=== PATIENT | female | born 1990 | race Caucasian/White ===

== ENCOUNTER 2018-04-23 14:42 | Inpatient (IN) | payer OTHER ==
[2018-04-23 16:32] VITALS: BMI 24.7
--- NOTE | 2018-04-23 20:01 | HP ---
CIWA Score - CIWA Score Nausea/Vomitin-Mild Nausea/No Vomiting Muscle Tremors: 4-Moderate,w/Arms Extend Anxiety: 4-Mod. Anxious/Guarded Agitation: 4-Moderately Restless Paroxysmal Sweats: 1-Minimal Palms Moist Orientation: 0-Oriented Tacttile Disturbances: 0-None Auditory Disturbances: 0-None Visual Disturbances: 0-None Headache: 2-Mild CIWA-Ar Total Score: 16 Admission ROS S - HPI Chief Complaint: Benzodiazepine withdrawal symptoms Allergies/Adverse Reactions: Allergies Allergy/AdvReac Type Severity Reaction Status Date / Time Sulfa (Sulfonamide Allergy Verified 04/23/18 20:04 Antibiotics) History of Present Illness: 28 years old female with 17 years history of benzodiazepine dependence is seeking admission to detox. Patient has been in previous detox at [facility] in [facility] and reports insignificant period of sobriety. She has medical history of asthma, gastritis, seizures, anemia, kidney stones, depression and anxiety. She denies suicide attempt and suicidal ideation at this time. Exam Limitations: No Limitations - Ebola screening Have you traveled outside of the country in the last 21 days: No Have you had contact with anyone from an Ebola affected area: No Have you been sick,other than usual withdrawal symptoms: No Do you have a fever: No - Review of Systems Constitutional: Chills, Loss of Appetite, Malaise, Changes in sleep EENT: reports: Sinus Pressure Respiratory: reports: SOB with Exertion Cardiac: reports: No Symptoms Reported GI: reports: Nausea, Poor Appetite, Poor Fluid Intake, Vomiting, Abdominal cramping : reports: No Symptoms Reported Musculoskeletal: reports: Back Pain, Muscle Pain Integumentary: reports: Dryness Neuro: reports: Headache, Tingling, Tremors Endocrine: reports: No Symptoms Reported Hematology: reports: No Symptoms Reported Psychiatric: reports: Anxious, Depressed Other Systems: Reviewed and Negative Patient History - Patient Medical History Hx Anemia: Yes (Not on medication) Hx Asthma: Yes (Albuterol) Hx Chronic Obstructive Pulmonary Disease (COPD): No Hx Cancer: No Hx Cardiac Disorders: No Hx Congestive Heart Failure: No Hx Hypertension: No Hx Hypercholesterolemia: No Hx Pacemaker: No HX Cerebrovascular Accident: No Hx Seizures: Yes (Not on medication) Hx Diabetes: No Hx Gastrointestinal Disorders: Yes (Gastritis) Hx Liver Disease: No Hx Genitourinary Disorders: No Hx Sexually Transmitted Disorders: No Hx Renal Disease (ESRD): No Hx Thyroid Disease: No Hx Human Immunodeficiency Virus (HIV): No (Negative 2018) Hx Hepatitis C: No Hx Depression: Yes (Not on medication) Hx Suicide Attempt: No (Denies suicidal ideation at this time) Hx Bipolar Disorder: Yes (Not on medication) Hx Schizophrenia: No Other Medical History: Anxiety - Not on medication - Patient Surgical History Hx Section: Yes ( 05/01/2014) - PPD History Previous Implant?: No Documented Results: Negative w/o proof PPD to be Administered?: Yes - Reproductive History Patient is a Female of Child Bearing Age (11 -55 yrs old): Yes Last Menstrual Period: 03/13/18 Patient : No - Smoking Cessation Smoking history: Current every day smoker Have you smoked in the past 12 months: Yes Aproximately how many cigarettes per day: 10 Hx Chewing Tobacco Use: No Initiated information on smoking cessation: Yes 'Breaking Loose' booklet given: 04/23/18 - Substance & Tx. History Hx Alcohol Use: No Hx Substance Use: Yes Substance Use Type: Cocaine, Marijuana, Prescribed Hx Substance Use Treatment: Yes ([facility]) - Substances Abused Marijuana/Hashish Route: Smoking Frequency: Daily Amount used: 10 PUFFS OF PRESCRIBED MEDICAL MARIJUANA Age of first use: 27 Date of Last Use: 04/22/18 Alprazolam (Xanax) Route: Oral Frequency: Daily Amount used: 1MG Age of first use: 12 Date of Last Use: 04/22/18 Benzodiazepine (Klonopin) Route: Oral Frequency: Daily Amount used: 6MG Age of first use: 12 Date of Last Use: 04/22/18 Family Disease History - Family Disease History Family History: Denies (Patient reports that she was adopted as child) Admission Physical Exam BHS - Vital Signs Vital Signs: Vital Signs - 24 hr 04/23/18 16:30 Temperature 97.7 F Pulse Rate 64 Respiratory 17 Rate Blood Pressure 110/70 - Physical General Appearance: Yes: Moderate Distress, Tremorous, Irritable, Anxious HEENTM: Yes: EOMI, Normal ENT Inspection, Normal Voice, NABIL Respiratory: Yes: Lungs Clear, Normal Breath Sounds, No Respiratory Distress Neck: Yes: Supple Breast: Yes: Breast Exam Deferred Cardiology: Yes: Regular Rhythm, Regular Rate Abdominal: Yes: Normal Bowel Sounds, Soft Genitourinary: Yes: Within Normal Limits Back: Yes: Normal Inspection Musculoskeletal: Yes: Back pain, Muscle Pain, Muscle weakness Extremities: Yes: Tremors Neurological: Yes: meat dresser II-XII NML intact, Alert, Normal Mood/Affect Integumentary: Yes: Warm Lymphatic: Yes: Within Normal Limits - Diagnostic (1) Depression Current Visit: Yes Status: Chronic Qualifiers: Depression Type: unspecified Qualified Code(s): F32.9 - Major depressive disorder, single episode, unspecified (2) Anxiety Current Visit: Yes Status: Chronic (3) Anemia Current Visit: Yes Status: Chronic Qualifiers: Anemia type: iron deficiency (4) Asthma Current Visit: Yes Status: Chronic Qualifiers: Asthma severity: mild Asthma persistence: unspecified Asthma complication type: uncomplicated Qualified Code(s): J45.909 - Unspecified asthma, uncomplicated (5) Gastritis Current Visit: Yes Status: Chronic Qualifiers: Chronicity: unspecified (6) Kidney stone Current Visit: Yes Status: Chronic (7) Sedative, hypnotic or anxiolytic dependence with withdrawal, uncomplicated Current Visit: Yes Status: Acute Cleared for Admission [facility] - Detox or Rehab [facility] Level of Care: Medically Managed Detox Regimen/Protocol: Valium [facility] Breath Alcohol Content Breath Alcohol Content: 0 Urine Pregancy Test - Result Urine Test Results: Negative- NO Line Present Urine Drug Screen - Results Drug Screen Negative: No Urine Drug Screen Results: THC-Marijuana, CATRACHITO-Cocaine, AMP-Amphetamines, BZO- Benzodiazepines
[2018-04-23] MEDS ORDERED: LOPERAMIDE HCL 2 MG CAPSULE PO PRN (20:35)
[2018-04-23] MEDS ORDERED: MAG HYDROX/AL HYDROX/SIMETH 30 ML UNIT-DOSE CUP PO PRN (20:35)
[2018-04-23] MEDS ORDERED: guaiFENesin/D-METHORPHAN HB 10 ML UNIT-DOSE CUPS PO PRN (20:35)
[2018-04-23] MEDS ORDERED: MAGNESIUM HYDROX 2400MG/30ML ORAL SUSPENSION 30 ML CUP PO PRN (20:35)
[2018-04-23] MEDS ORDERED: NICOTINE POLACRILEX 2 MG GUM BC PRN (20:35)
[2018-04-23] MEDS ORDERED: MAGNESIUM CITRATE 300 ML BOTTLE PO PRN (20:35)
[2018-04-23] MEDS ORDERED: ACETAMINOPHEN 325 MG TABLET (FP) PO PRN (20:35)
[2018-04-23] MEDS ORDERED: MENTHOL/PHENOL 1 EACH UD MM PRN (20:35)
[2018-04-23] MEDS ORDERED: P-EPHED 60MG/TRIPROLIDI 2.5MG TABLET PO PRN (20:35)
[2018-04-23] MEDS ORDERED: IBUPROFEN 400 MG TABLET (FP) PO PRN (20:35)
[2018-04-23] MEDS ORDERED: diazePAM 5 MG TABLET PO ONE (22:00)
[2018-04-23] MEDS: THIAMINE HCL 100 MG TABLET (FP) PO SCH (23:14)
[2018-04-23] MEDS: diazePAM 5 MG TABLET PO SCH (23:15)
[2018-04-23] MEDS: MELATONIN 5 MG TABLETS PO PRN (23:23)
[2018-04-23] MEDS: GABAPENTIN 300 MG CAPSULE (FP) PO SCH (23:26)
[2018-04-24] MEDS: diazePAM 5 MG TABLET PO SCH ×3 (06:55→22:13)
[2018-04-24] MEDS: GABAPENTIN 300 MG CAPSULE (FP) PO SCH ×3 (06:55→22:13)
[2018-04-24] MEDS ORDERED: NICOTINE 14 MG/24 HOURS TOPICAL PATCH TD SCH (10:00)
[2018-04-24 10:24] LABS: HEMATOCRIT 38.2 % (32.4-45.2); HEMOGLOBIN 12.5 GM/dL (10.7-15.3); MCHC 32.8 g/dl (32.0-36.0); MEAN CELL VOLUME 88.4 fl (80-96); MEAN PLT VOLUME 10.1 fl (7.5-11.1); PLATELET COUNT 229 K/MM3 (134-434); RBC 4.32 M/mm3 (3.60-5.2); RDW 15.2 % (11.6-15.6); WHITE BLOOD COUNT 7.1 K/mm3 (4.0-10.0)
[2018-04-24] MEDS: diazePAM 5 MG TABLET PO PRN ×2 (10:31→17:20)
[2018-04-24] MEDS: PRENATAL VITAMINS W/ FOLIC ACID TABLET (FP) PO SCH (10:31)
[2018-04-24 10:45] LABS: ALBUMIN 3.7 g/dl (3.4-5.0); ALK PHOS 107 U/L (45-117); ANION GAP 9 MMOL/L (8-16); BILIRUBIN,TOTAL 0.3 mg/dL (0.2-1); BLOOD UREA NITROGEN 15 mg/dL (7-18); CALCIUM 8.5 mg/dL (8.5-10.1); CHLORIDE 107 mmol/L (98-107); CO2 27 mmol/L (21-32); CREATININE 0.8 mg/dL (0.55-1.3); GLUCOSE,RANDOM 84 mg/dL (74-106); POTASSIUM 3.9 mmol/L (3.5-5.1); SGOT/AST 3 U/L (15-37); SGPT/ALT 16 U/L (13-61); SODIUM 143 mmol/L (136-145); TOT PROT 6.4 g/dl (6.4-8.2)
[2018-04-24 13:12] LABS: URINE APPEARANCE TURBID; URINE BILIRUBIN NEGATIVE (<2.0 mg/dL); URINE COLOR AMBER; URINE GLUCOSE (UA) NEGATIVE (NEGATIVE); URINE KETONE TRACE (NEGATIVE); URINE LEUK ESTERASE NEGATIVE (NEGATIVE); URINE NITRITE NEGATIVE (NEGATIVE); URINE PROTEIN 1+ (NEGATIVE); URINE UROBILINOGEN NEGATIVE mg/dL (0.2-1.0)
[2018-04-24 13:17] LABS: URINE MUCUS FEW; YEAST MANY
--- NOTE | 2018-04-24 14:46 | EKG ---
Test Reason : Blood Pressure : / mmHG Vent. Rate : 066 BPM Atrial Rate : 067 BPM P-R Int : 118 ms QRS Dur : 090 ms QT Int : 386 ms P-R-T Axes : 056 077 072 degrees QTc Int : 404 ms NORMAL SINUS RHYTHM WITH SINUS ARRHYTHMIA NONSPECIFIC T WAVE ABNORMALITY ABNORMAL ECG NO PREVIOUS ECGS AVAILABLE Confirmed by MD Andersen Edward ([id number]) on 04/24/2018 2:45:45 PM Referred By: Confirmed By:Kody Andersen MD
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
--- NOTE | 2018-04-24 15:18 | PN ---
[facility] CIWA - CIWA Score Nausea/Vomitin-Mild Nausea/No Vomiting Muscle Tremors: 4-Moderate,w/Arms Extend Anxiety: 3 Agitation: 4-Moderately Restless Paroxysmal Sweats: No Perspiration Orientation: 0-Oriented Tacttile Disturbances: 0-None Auditory Disturbances: 0-None Visual Disturbances: 0-None Headache: 0-None Present CIWA-Ar Total Score: 12 BHS Progress Note (SOAP) Subjective: C/o shakes and hills. States feels very anxious.Expressed concern that Adderral is being held. States "I need it to focus'. Wants to wear own shoes. States better support. Objective: A&O x 3. Slight tremors of hands when arms lifted. Gait steady. Following unit directions w/o issues. Vital Signs 04/24/18 04/24/18 09:26 13:58 Temperature 98.1 F 98.2 F Pulse Rate 85 93 H Respiratory 16 18 Rate Blood Pressure 103/72 107/74 Lab Results WBC 7.1 K/mm3 (4.0-10.0) 04/24/18 08:00 RBC 4.32 M/mm3 (3.60-5.2) 04/24/18 08:00 Hgb 12.5 GM/dL (10.7-15.3) 04/24/18 08:00 Hct 38.2 % (32.4-45.2) 04/24/18 08:00 MCV 88.4 fl (80-96) 04/24/18 08:00 MCHC 32.8 g/dl (32.0-36.0) 04/24/18 08:00 RDW 15.2 % (11.6-15.6) 04/24/18 08:00 Plt Count 229 K/MM3 (134-434) 04/24/18 08:00 Sodium 143 mmol/L (136-145) 04/24/18 08:00 Potassium 3.9 mmol/L (3.5-5.1) 04/24/18 08:00 Chloride 107 mmol/L (98-107) 04/24/18 08:00 Carbon Dioxide 27 mmol/L (21-32) 04/24/18 08:00 Anion Gap 9 MMOL/L (8-16) 04/24/18 08:00 BUN 15 mg/dL (7-18) 04/24/18 08:00 Creatinine 0.8 mg/dL (0.55-1.3) 04/24/18 08:00 Random Glucose 84 mg/dL (74-106) 04/24/18 08:00 Calcium 8.5 mg/dL (8.5-10.1) 04/24/18 08:00 Labs reviewed. Assessment: Withdrawal symptoms. Plan: Continue detox. Allow to wear own shoes.
[2018-04-24] MEDS ORDERED: hydrOXYzine PAMOATE 50 MG CAPSULE (FP) PO PRN (16:47)
[2018-04-24] MEDS ORDERED: diphenhydrAMINE HCL 50 MG CAPSULE PO SCH (22:00)
[2018-04-24] MEDS: diphenhydrAMINE HCL 25 MG CAPSULE (FP) PO SCH (22:12)
[2018-04-24] MEDS: THIAMINE HCL 100 MG TABLET (FP) PO SCH (22:13)
[2018-04-24] MEDS: NICOTINE POLACRILEX 4 MG GUM BUC PRN (23:19)
[2018-04-25] MEDS: GABAPENTIN 300 MG CAPSULE (FP) PO SCH ×3 (05:31→22:05)
[2018-04-25] MEDS: diazePAM 5 MG TABLET PO PRN ×3 (05:32→17:48)
[2018-04-25] MEDS: NICOTINE POLACRILEX 4 MG GUM BUC PRN ×2 (08:57→13:21)
[2018-04-25] MEDS: diazePAM 5 MG TABLET PO SCH ×2 (10:24→22:05)
[2018-04-25] MEDS: PRENATAL VITAMINS W/ FOLIC ACID TABLET (FP) PO SCH (10:24)
[2018-04-25] MEDS ORDERED: COLLOIDAL OATMEAL 1 BAR EACH TP PRN (10:29)
--- NOTE | 2018-04-25 11:53 | PN ---
[facility] CIWA - CIWA Score Nausea/Vomitin-No Nausea/No Vomiting Muscle Tremors: 3 Anxiety: 2 Agitation: 2 Paroxysmal Sweats: 1-Minimal Palms Moist Orientation: 0-Oriented Tacttile Disturbances: 1-Very Mild Itch/Numbness Auditory Disturbances: 0-None Visual Disturbances: 0-None Headache: 1-Very Mild CIWA-Ar Total Score: 10 BHS Progress Note (SOAP) Subjective: sweat tremor anxiety restlessness trouble sleep at night Objective: 04/25/18 11:58 Vital Signs Temperature 98.2 F 04/25/18 09:46 Pulse Rate 110 H 04/25/18 09:46 Respiratory Rate 16 04/25/18 09:46 Blood Pressure 125/76 04/25/18 09:46 O2 Sat by Pulse Oximetry (%) Laboratory Last Values WBC 7.1 K/mm3 (4.0-10.0) 04/24/18 08:00 RBC 4.32 M/mm3 (3.60-5.2) 04/24/18 08:00 Hgb 12.5 GM/dL (10.7-15.3) 04/24/18 08:00 Hct 38.2 % (32.4-45.2) 04/24/18 08:00 MCV 88.4 fl (80-96) 04/24/18 08:00 MCH 29.0 pg (25.7-33.7) 04/24/18 08:00 MCHC 32.8 g/dl (32.0-36.0) 04/24/18 08:00 RDW 15.2 % (11.6-15.6) 04/24/18 08:00 Plt Count 229 K/MM3 (134-434) 04/24/18 08:00 MPV 10.1 fl (7.5-11.1) 04/24/18 08:00 Sodium 143 mmol/L (136-145) 04/24/18 08:00 Potassium 3.9 mmol/L (3.5-5.1) 04/24/18 08:00 Chloride 107 mmol/L (98-107) 04/24/18 08:00 Carbon Dioxide 27 mmol/L (21-32) 04/24/18 08:00 Anion Gap 9 MMOL/L (8-16) 04/24/18 08:00 BUN 15 mg/dL (7-18) 04/24/18 08:00 Creatinine 0.8 mg/dL (0.55-1.3) 04/24/18 08:00 Creat Clearance w eGFR > 60 (>60) 04/24/18 08:00 Random Glucose 84 mg/dL (74-106) 04/24/18 08:00 Calcium 8.5 mg/dL (8.5-10.1) 04/24/18 08:00 Total Bilirubin 0.3 mg/dL (0.2-1) 04/24/18 08:00 AST 3 U/L (15-37) L 04/24/18 08:00 ALT 16 U/L (13-61) 04/24/18 08:00 Alkaline Phosphatase 107 U/L (45-117) 04/24/18 08:00 Total Protein 6.4 g/dl (6.4-8.2) 04/24/18 08:00 Albumin 3.7 g/dl (3.4-5.0) 04/24/18 08:00 Urine Color [place] 04/24/18 09:30 Urine Appearance Turbid 04/24/18 09:30 Urine pH 5.0 (5.0-8.0) 04/24/18 09:30 Ur Specific [place] 1.028 (1.010-1.035) 04/24/18 09:30 Urine Protein 1+ (NEGATIVE) H 04/24/18 09:30 Urine Glucose (UA) Negative (NEGATIVE) 04/24/18 09:30 Urine Ketones Trace (NEGATIVE) H 04/24/18 09:30 Urine Blood Negative (NEGATIVE) 04/24/18 09:30 Urine Nitrite Negative (NEGATIVE) 04/24/18 09:30 Urine Bilirubin Negative (<2.0 mg/dL) 04/24/18 09:30 Urine Urobilinogen Negative mg/dL (0.2-1.0) 04/24/18 09:30 Ur Leukocyte Esterase Negative (NEGATIVE) 04/24/18 09:30 Urine WBC (Auto) 183 /hpf (3-5) 04/24/18 09:30 Urine RBC (Auto) None /hpf (0-3) 04/24/18 09:30 Urine Mucus Few 04/24/18 09:30 Urine Yeast Many 04/24/18 09:30 RPR Titer Nonreactive (NONREACTIVE) 04/24/18 08:00 lab noted Assessment: 04/25/18 11:59 withdrawal sx Plan: continue detox
[2018-04-25] MEDS: MINERAL OIL/PETROLAT/WATER TOPICAL CREAM 113 GM JAR TP SCH (22:04)
[2018-04-25] MEDS: MELATONIN 5 MG TABLETS PO PRN (22:04)
[2018-04-25] MEDS: diphenhydrAMINE HCL 25 MG CAPSULE (FP) PO SCH (22:04)
[2018-04-25] MEDS: THIAMINE HCL 100 MG TABLET (FP) PO SCH (22:05)
[2018-04-26] MEDS: GABAPENTIN 300 MG CAPSULE (FP) PO SCH ×3 (05:21→22:10)
[2018-04-26] MEDS: diazePAM 5 MG TABLET PO PRN ×2 (05:23→14:52)
--- NOTE | 2018-04-26 09:53 | PN ---
BHS Progress Note (SOAP) Subjective: sweats irritable constipation Objective: 04/26/18 09:52 Vital Signs Temperature 97.9 F 04/26/18 06:00 Pulse Rate 82 04/26/18 06:00 Respiratory Rate 16 04/26/18 06:00 Blood Pressure 110/75 04/26/18 06:00 O2 Sat by Pulse Oximetry (%) aaox3 ambulating no acute distress Assessment: 04/26/18 09:53 withdrawal sx Plan: continue detox increase fluids mom prn d/c in am
[2018-04-26] MEDS: PRENATAL VITAMINS W/ FOLIC ACID TABLET (FP) PO SCH (10:07)
[2018-04-26] MEDS: diazePAM 5 MG TABLET PO SCH ×2 (10:07→22:11)
[2018-04-26] MEDS: NICOTINE POLACRILEX 4 MG GUM BUC PRN ×2 (10:09→22:12)
[2018-04-26 19:54] LABS: URINE APPEARANCE SLCLOUDY; URINE BILIRUBIN NEGATIVE (<2.0 mg/dL); URINE COLOR LTYELLOW; URINE GLUCOSE (UA) NEGATIVE (NEGATIVE); URINE KETONE NEGATIVE (NEGATIVE); URINE LEUK ESTERASE 2+ (NEGATIVE); URINE NITRITE NEGATIVE (NEGATIVE); URINE PROTEIN NEGATIVE (NEGATIVE); URINE UROBILINOGEN NEGATIVE mg/dL (0.2-1.0)
[2018-04-26 20:08] LABS: EPI CELLS MODERATE /HPF (FEW); URINE BACTERIA RARE /hpf (NONE SEEN); URINE MUCUS RARE
[2018-04-26] MEDS: THIAMINE HCL 100 MG TABLET (FP) PO SCH (22:11)
[2018-04-26] MEDS: diphenhydrAMINE HCL 25 MG CAPSULE (FP) PO SCH (22:12)
[2018-04-26] MEDS: MINERAL OIL/PETROLAT/WATER TOPICAL CREAM 113 GM JAR TP SCH (22:12)
[2018-04-27] MEDS: GABAPENTIN 300 MG CAPSULE (FP) PO SCH (05:54)
--- NOTE | 2018-04-27 09:05 | DS ---
[facility] Detox Discharge Summary Admission Date: 04/23/18 Discharge Date: 04/27/18 - History Present History: Sedative Dependence - Physical Exam Results Vital Signs: Vital Signs Temperature 96.6 F L 04/27/18 07:38 Pulse Rate 83 04/27/18 07:38 Respiratory Rate 16 04/27/18 07:38 Blood Pressure 101/62 04/27/18 07:38 O2 Sat by Pulse Oximetry (%) - Treatment Hospital Course: Detox Protocol Followed, Detoxed Safely, Responded well, Discharged Condition Good, Rehab Referral Accepted - Medication Discharge Medications: Ambulatory Orders Alprazolam [Xanax] 1 mg PO DAILY PRN 04/23/18 Dextroamphetamine/Amphetamine [Adderall 10 mg Tablet] 20 mg PO TID 04/23/18 Gabapentin 600 mg PO TID 04/23/18 clonazePAM [Klonopin -] 2 mg PO TID 04/23/18 Diphenhydramine [Benadryl Capsule -] 100 mg PO HS 04/24/18 - Diagnosis (1) Anxiety Current Visit: Yes Status: Acute (2) Insomnia Current Visit: Yes Status: Acute (3) Sedative, hypnotic or anxiolytic dependence with withdrawal, uncomplicated Current Visit: Yes Status: Chronic (4) Substance-induced sleep disorder Current Visit: Yes Status: Acute (5) Anemia Current Visit: Yes Status: Chronic Qualifiers: Anemia type: iron deficiency (6) Anxiety Current Visit: Yes Status: Chronic (7) Asthma Current Visit: Yes Status: Chronic Qualifiers: Asthma severity: mild Asthma persistence: unspecified Asthma complication type: uncomplicated Qualified Code(s): J45.909 - Unspecified asthma, uncomplicated (8) Depression Current Visit: Yes Status: Chronic Qualifiers: Depression Type: unspecified Qualified Code(s): F32.9 - Major depressive disorder, single episode, unspecified (9) Gastritis Current Visit: Yes Status: Chronic Qualifiers: Chronicity: unspecified (10) Kidney stone Current Visit: Yes Status: Chronic (11) PTSD (post-traumatic stress disorder) Current Visit: No Status: Chronic - AMA Did Patient Leave Against Medical Advice: No ([facility])
[2018-04-27 09:57] VITALS: BP 118/77; PULSE 103; TEMP 99.1
[2018-04-27] MEDS ORDERED: diazePAM 5 MG TABLET PO SCH (10:00)
[2018-04-27] MEDS: PRENATAL VITAMINS W/ FOLIC ACID TABLET (FP) PO SCH (10:15)
== END 2018-04-27 11:26 | disposition home or self-care (01) | DRG 776 ==
LOC: YASAS 14:42 → Y6N 22:03
PROC: HZ2ZZZZ Detoxification Services for Substance Abuse Treatment (ICD-10-PCS; principal; 2018-04-23)
DX: F13.230 Sedative, hypnotic or anxiolytic dependence with withdrawal, uncomplicated (principal); F43.10 Post-traumatic stress disorder, unspecified; F31.9 Bipolar disorder, unspecified; F41.9 Anxiety disorder, unspecified; F32.9 Major depressive disorder, single episode, unspecified; F19.282 Other psychoactive substance dependence with psychoactive substance-induced sleep disorder; G47.00 Insomnia, unspecified; J45.909 Unspecified asthma, uncomplicated; R56.9 Unspecified convulsions; D50.9 Iron deficiency anemia, unspecified; K29.70 Gastritis, unspecified, without bleeding; N20.0 Calculus of kidney; Z88.2 Allergy status to sulfonamides
CPT/HCPCS: 36415; 80053; 81003; 81015; 85027; 86593; 93005; 93010